=== PATIENT | male | born 1960 | race Caucasian/White ===

== ENCOUNTER 2017-12-21 16:36 | Emergency (ER) | payer OTHER ==
[~2017-12-21] VITALS: Ht 180.3 cm; Wt 162.4 kg
[2017-12-21 16:36] VITALS: BP 146/80
[2017-12-21 17:35] LABS: BASOPHILS % (AUTO) 0.3 % (0.0-2.0); EOSINOPHILS % (AUTO) 1.5 % (0.0-6.0); HEMATOCRIT 41 % (39-51); HEMOGLOBIN 14.2 g/dL (13.5-17.5); LYMPHOCYTES # (AUTO) 2.1 /CMM (0.8-4.8); LYMPHOCYTES % (AUTO) 21.9 % (20.0-44.0); MEAN CORPUSCULAR HGB CONC 35 g/dl (31.0-36.0); MEAN CORPUSCULAR VOLUME 87 fL (80-96); MONOCYTES # (AUTO) 0.6 /CMM (0.1-1.30); MONOCYTES % (AUTO) 6.3 % (2.0-12.0); NEUTROPHILS # (AUTO) 6.8 /CMM (1.8-8.9); PLATELET COUNT (AUTO) 280 /CMM (150-450); RDW COEFFICIENT OF VARIATION 11.8 (11.5-15.0); RED BLOOD CELL COUNT(AUTO) 4.71 MIL/uL (4.5-6.0); WHITE BLOOD COUNT (AUTO) 9.8 K/uL (4.3-11.0)
[2017-12-21 17:54] LABS: MAGNESIUM 1.8 mg/dL (1.8-2.4)
[2017-12-21 18:00] LABS: CALCIUM, SERUM 9.2 mg/dL (8.5-10.1); CREATININE 0.9 mg/dL (0.6-1.3); POTASSIUM 4.2 mmol/L (3.5-5.1)
[2017-12-21 18:07] LABS: BILIRUBIN,DIRECT 0.1 mg/dL (0.0-0.2); BILIRUBIN,TOTAL 0.3 mg/dL (0.2-1.0); THYROID STIMULATING HORMONE 3.65 uIU/mL (0.358-3.74); TOTAL PROTEIN, SERUM 7.8 g/dL (6.4-8.2)
== END 2017-12-21 18:49 | disposition home or self-care (01) ==
LOC: ER 16:45
DX: F41.9 Anxiety disorder, unspecified (principal); I10 Essential (primary) hypertension; Z88.2 Allergy status to sulfonamides; E66.9 Obesity, unspecified
CPT/HCPCS: 36415; 80048-TC; 80076-TC; 83735-TC; 84443-TC; 85025-TC; A4606; Z7610

== ENCOUNTER 2021-07-11 02:49 | Emergency (ER) | payer MEDICAID, OTHER ==
[~2021-07-11] VITALS: Ht 180.3 cm; Wt 131.5 kg
--- NOTE | 2021-07-11 02:56 | NUR ---
PATIENT [id number] FOR C/O PALPITATIONS AFTER GETTING UP TO USE THE RESTROOM. PATIENT STATES PALPITATIONS RESIDED WHEN EMS ARRIVED. PATIENT ALERT AND ORIENTED X3. AMBULATORY WITH NON LABORED BREATHING AND PLACED ON A MONITOR.
[2021-07-11 03:30] VITALS: BP 135/87
[2021-07-11] MEDS ORDERED: MAG HYDROX/AL HYDROX/SIMETH 30 ML UDC ONE (03:39)
[2021-07-11] MEDS ORDERED: LIDOCAINE VISCOUS 2% UD 15 ML UDC ONE (03:40)
[2021-07-11] MEDS ORDERED: MAG HYDROX/AL HYDROX/SIMETH 30 ML UDC PO ONE (04:00)
[2021-07-11] MEDS ORDERED: LIDOCAINE VISCOUS 2% UD 15 ML UDC MM ONE (04:00)
== END 2021-07-11 03:57 | disposition home or self-care (01) ==
LOC: ER 02:50
DX: F41.9 Anxiety disorder, unspecified (principal); K21.9 Gastro-esophageal reflux disease without esophagitis; I10 Essential (primary) hypertension; E11.9 Type 2 diabetes mellitus without complications